=== PATIENT | male | born 1940 | race Caucasian/White ===

== ENCOUNTER 2024-10-18 08:43 | Emergency (ER) | payer OTHER ==
[~2024-10-18] VITALS: Ht 170.2 cm; Wt 80.0 kg
[2024-10-18 08:45] VITALS: BP 127/55; PULSE 83; RESP 16; TEMP 36.7; O2SAT 98
[2024-10-18 09:43] LABS: HEMATOCRIT 40.6 % (42.0-52.0); HEMOGLOBIN 13.3 g/dL (14.0-18.0); MEAN CORPUSCULAR HEMOGLOBIN 28.2 pg (28.0-32.0); MEAN CORPUSCULAR HGB CONC 32.7 g/dL (31.0-37.0); MEAN CORPUSCULAR VOLUME 86.3 fL (80.0-94.0); PLATELET 262 x1000/uL (130-400); RED BLOOD CELL COUNT 4.71 mill/uL (4.7-6.1); RED CELL DISTRIBUTION WIDTH 14.3 % (11.6-14.6); WHITE BLOOD COUNT 9.3 x1000/uL (4.5-11.0)
[2024-10-18 09:53] LABS: POTASSIUM 4.2 mEq/L (3.5-5.1)
[2024-10-18] MEDS: KETOROLAC 15MG/ML VIAL IV ONE (09:53)
[2024-10-18 09:55] LABS: CALCIUM 9.6 mg/dL (8.7-10.4)
[2024-10-18 10:00] LABS: CREATININE 1.2 mg/dL (0.6-1.3)
[2024-10-18 12:42] LABS: CLARITY URINE CLEAR (CLEAR); COLOR URINE YELLOW (YELLOW); GLUCOSE URINE NEGATIVE (NEGATIVE); KETONES URINE NEGATIVE (NEGATIVE); OCCULT BLOOD URINE NEGATIVE (NEGATIVE); PH URINE 6.5 (4.5-8.0); PROTEIN URINE NEGATIVE (NEGATIVE); SPECIFIC GRAVITY URINE <=1.005 (1.005-1.030)
[2024-10-18 12:43] LABS: LEUKOCYTE ESTERASE URINE 1+ (NEGATIVE); NITRITE URINE NEGATIVE (NEGATIVE); UROBILINOGEN URINE 0.2 E.U./dL (0.2-1.0)
[2024-10-18 13:00] LABS: BACTERIA URINE RARE; RBC URINE NONE SEEN /hpf (0-2); SQUAMOUS EPITHELIAL CELL URINE NONE SEEN /lpf (RARE/1+); YEAST URINE NONE SEEN
[2024-10-18] MEDS ORDERED: PHEN-815 MT (13:31)
[2024-10-18] MEDS: PHENAZOPYRIDINE HCL 100MG TABLET PO ONE (13:57)
== END 2024-10-18 13:59 | disposition home or self-care (01) ==
LOC: ER 08:43
DX: N39.0 Urinary tract infection, site not specified (principal); R30.0 Dysuria; E78.00 Pure hypercholesterolemia, unspecified; Z79.899 Other long term (current) drug therapy; Z88.0 Allergy status to penicillin
CPT/HCPCS: 99283; 96374; 80048; 81003; 85027; 36415; J1885